=== PATIENT | male | born 1990 | race Caucasian/White ===

== ENCOUNTER → 2023-11-28 | Outpatient (CLI) | payer OTHER ==
--- NOTE | 2023-11-28 21:09 | MR ---
EXAMINATION TYPE: MR cervical spine wo con DATE OF EXAM: 11/28/2023 12:15 PM CLINICAL INDICATION:Male, 33 years old with history of M54.2 Neck pain; Chronic neck pain, LUE tingli ng/weakness. COMPARISON: None. TECHNIQUE: Multi planar, multi sequence imaging was performed utilizing: T1-weighted, T2-weighted, an d turbo inversion recovery imaging of the cervical spine. IV Contrast: (none if empty) FINDINGS: Alignment: The cervical vertebral bodies have preserved heights. Alignment is within normal limits gi anthony patient positioning. Bones: Minimal osteophytes and disc space narrowing most pronounced at the C5-C7 vertebral levels. Cord: The spinal cord is unremarkable with regards to their signal intensity and morphology. Discs: Intervertebral disc signal is maintained. C2-C3: No significant disc pathology. The spinal canal is patent. No neural foraminal stenosis. C3-C4: No significant disc pathology. The spinal canal is patent. No neural foraminal stenosis. C4-C5: No significant disc pathology. The spinal canal is patent. Bilateral facet and uncovertebral joint arthropathy are present with mild bilateral neural foraminal stenosis. C5-C6: No significant disc pathology. The spinal canal is patent. No neural foraminal stenosis. C6-C7: No significant disc pathology. The spinal canal is patent. No neural foraminal stenosis. C7-T1: No significant disc pathology. The spinal canal is patent. No neural foraminal stenosis. Other: None. IMPRESSION: 1. No evidence for disc herniation or significant spinal canal stenosis. 2. Mild disc degeneration with associated osteoarthritic changes.
== END | disposition home or self-care (01) ==
LOC: RADMRIMAIN 11:27
DX: M47.812 Spondylosis without myelopathy or radiculopathy, cervical region (principal); M50.30 Other cervical disc degeneration, unspecified cervical region
CPT/HCPCS: 72141

== ENCOUNTER → 2024-05-24 | Outpatient (CLI) | payer OTHER ==
[2024-05-24 15:12] VITALS: BP 128/67; PULSE 77; RESP 16; TEMP 98
--- NOTE | 2024-05-24 16:04 | P.SLEEP ---
History of Present Illness DATE: 05/24/2024 CONSULTATION/NEW PATIENT EVALUATION HISTORY OF PRESENT ILLNESS/SLEEP-WAKE EVALUATION: 33-year-old gentleman had be en evaluated in the sleep center for possible obstructive sleep apnea hypopnea syndrome. SLEEP SCHEDULE: Usually sleep schedule from 11 PM to 5:30 AM on weekdays and from midnight until 7:30 AM on weekend. FALLING ASLEEP: No problems with falling asleep. DURING SLEEP: Patient sleeps with snoring and witnessed episodes of stop breathing during his sleep by his . Positive history of heartburn, gasping for air, restless leg symptoms. Patient wakes up from sleep 3 times with 1 episode of nocturia. Occasional positive history of hypnogogical hallucinations, no sleep paralysis. DURING THE DAY/WAKE STATE: In the morning patient wake up tired, has problems with memory, concentration, irritability, depression, anxiety. Positive history of possible cataplexy episodes with weakness in the knees. [place] sleepiness scale is an extremely high range of 17. Patient does not take naps. PAST MEDICAL HISTORY: PTSD, neck problems, back problems, acid reflux, hyperlipidemia. PAST SURGICAL HISTORY: Please see below. MEDICATIONS: Please see below. SOCIAL HISTORY: Please see below. FAMILY HISTORY: Hypertension, snoring, acid reflux. REVIEW OF SYSTEMS: Snoring, multiple awakenings from sleep, sleepiness during the day. No fevers. No double vision. No recent chest pain. No shortness of breath. No abdominal pain. No bleeding episodes. No blood in urine. No seizure episodes. PHYSICAL EXAMINATION: GENERAL: A pleasant patient without any distress. VITAL SIGNS: Please see below, weight 193 pounds, BMI 27.6. HEENT: PERRLA, EOMI. Evaluation of oropharynx showed tongue protrudes midline, low position of soft palate Mallampati3. NECK: Supple. No JVD. Thyroid is not palpable. 16 inches in circumference. LUNGS: Clear to percussion and to auscultation. Good air exchange. No wheezing or rhonchi. HEART: S1, S2 regular. No murmurs, gallops or rubs. ABDOMEN: Soft and nontender. Bowel sounds are present. No organomegaly appreciated. EXTREMITIES: No clubbing or cyanosis. CLINICAL SOCIOLOGIST: Awake, alert, and oriented x3. Cranial nerves 2 to 7 intact. There is no fasciculation or atrophy noted. No focal deficits observed. ASSESSMENT: 1. Snoring, witnessed episodes of stop breathing during the sleep by patient's , multiple awakenings from sleep, small oropharyngeal airspace, significant excessive daytime sleepiness. Obstructive sleep apnea hypopnea syndrome. 2. Extremely high [place] Sleepiness Scale of 17, positive history of possible hypnogogical hallucinations and possible cataplexy episodes dictate necessity to include narcolepsy type I in differential diagnosis. 3. History of PTSD. 4. Neck problems. 5. Back problems. 6 . Acid reflux. 7. Hyperlipidemia. PLAN: 1. Polysomnography for evaluation of patient's breathing during sleep. 2. Following plan after reading sleep study. 3. Preferable position during sleep on the side. 4. No driving if patient feels any sleepiness. Patient is aware of civil and criminal liability for unsafe driving. 5. Sleep hygiene with regular sleep time for at least 7.5-8 hours. 6. Watching weight. Thank you very much for referring this patient for consultation. Sincerely, Goran De La Cruz MD, PhD, FAASM. Diplomat of [place] [employer], Sleep Medicine Board by [employer] Pattern [employer] [facility] [place] cc: Ashly Catalan PA-C Past Medical History Past Medical History: GERD/Reflux, Hyperlipidemia History of Any Multi-Drug Resistant Organisms: None Reported Past Surgical History: No Surgical Hx Reported Past Anesthesia/Blood Transfusion Reactions: No Reported Reaction Past Psychological History: No Psychological Hx Reported Smoking Status: Former smoker Past Alcohol Use History: Daily Past Drug Use History: None Reported Medications and Allergies Home Medications Medication Instructions Recorded Confirmed Type Atorvastatin [Lipitor] 40 mg PO DAILY 05/24/24 05/24/24 History Omeprazole 40 mg PO 05/24/24 History Physical Exam Vitals: Vital Signs Temp Pulse Resp BP Pulse Ox 05/24/24 15:11 98.0 F 77 16 128/67 99 Intake and Output 05/24/24 05/24/24 05/24/24 06:59 14:59 22:59 Other: Weight 87.543 kg Sleep Note - Sleep Data ESS Total: 17 - Sleep Note Sleep Note: Temperature: 98.0 F Pulse Rate: 77 Respiratory Rate: 16 Blood Pressure: 128/67 SpO2: 99 Height: 5 ft 10 in Weight: 87.543 kg BMI: Neck Circumference: 16
== END ==
LOC: 3 N SLEEP 14:23
PROVIDERS: ATTEND Internal Medicine
DX: G47.33 Obstructive sleep apnea (adult) (pediatric) (principal); M53.9 Dorsopathy, unspecified; M54.2 Cervicalgia; K21.9 Gastro-esophageal reflux disease without esophagitis; E78.5 Hyperlipidemia, unspecified; Z87.891 Personal history of nicotine dependence; Z86.59 Personal history of other mental and behavioral disorders
CPT/HCPCS: 99211

== ENCOUNTER 2024-06-28 19:44 | Outpatient (CLI) | payer OTHER ==
--- NOTE | 2024-07-04 14:37 | P.PCN ---
Description of Procedure: POLYSOMNOGRAPHY REPORT PROCEDURE(S)/DATE(S): Polysomnography 06/28/2024 CLINICAL: Patient has been seen in the sleep center for evaluation of obstructive sleep apnea-hypopnea syndrome. Please see my consultation. Sleep study has been done for evaluation of patient breathing during the sleep. PROCEDURE: The standard montage for clinical polysomnography included the electroencephalogram, the electrooculogram, the mentalis surface electromyography and Lead II cardiography. The respiratory battery consisted of measurements of nasal/buccal air flow, pressure transducer measurements from nose, thoracic and/or abdominal effort and intercostal surface electromyography. Video monitoring has been done to check for any parasomnia events. Nocturnal oxyhemoglobin saturations were obtained by finger oximetry. Step-leon titration with positive airway pressure was utilized to control the respiratory events, if necessary. RESULTS: During the diagnostic sleep study sleep efficiency was normal 90.4%. Latency to sleep onset was close to the border 26.0 min. Sleep architecture showed stage NI was normal 6.6%, Delta sleep was extremely short 0.8%, REM sleep was normal 23.0%. Respiratory channel showed 3 obstructive apneas, 3 mixed apneas, 29 central apneas, 106 hypopneas with lowest oxygen level 84%. Total apnea hypopnea index was 21.5. Heart rate was in the range between 61 and 73, average 66. EMG showed 0 periodic limb movements per hour . IMPRESSIONS: 1. Moderate mostly central sleep apnea hypopnea syndrome. 2. No significant periodic limb movements have been documented. Please see other impressions from consultation PLAN: 1. The patient will have CPAP if necessary BiPAP ST mode titration for correction of respiratory abnormalities during the sleep. 2. Watching weight. 3. Sleep hygiene with regular time in bed for at least 7-1/2 hours. 4. No driving if feeling sleepiness. Thank you very much for allowing me to participate in the management of your patient. Sincerely, Goran De La Cruz MD, PhD, FAASM. Diplomat of [place] [employer], Sleep Medicine Board by [employer] Medicine Commercial Real Estate Appraiser [facility] [place] Dennys Farnsworth DO
== END 2024-06-29 05:55 | disposition home or self-care (01) ==
LOC: 3 N SLEEP 19:44
PROVIDERS: ATTEND Internal Medicine
CPT/HCPCS: 95810

== ENCOUNTER 2024-07-26 19:38 | Outpatient (CLI) | payer OTHER ==
--- NOTE | 2024-08-02 14:17 | P.PCN ---
Description of Procedure: CLINICAL: Titration with positive air pressure has been done for correction of respiratory abnormalities during sleep. DESCRIPTION OF PROCEDURE: The standard montage for clinical polysomnography included the electroencephalogram, the electrocardiogram, the mentalis surface electromyography and Lead II cardiography. The respiratory battery consisted of measurements of nasal /buccal air flow, pressure transducer measurements from the nose, thoracic and /or abdominal effort and intercostal surface electromyography. Video monitoring has been done to check for any parasomnia events. Nocturnal oxyhemoglobin saturations were obtained by finger oximetry. Step-leon titration with positive airway pressure was utilized to control respiratory events. Raw data of sleep recording has been reviewed and is adequate. RESULTS: Sleep efficiency was slightly decreased to 85.7%. Latency to sleep onset was borderline 30.5 minutes.]. Sleep architecture showed stage N1 was in normal range 8.4%, Delta sleep was absent 0%, REM sleep was slightly decreased to 18.7%. Heart rate was minimum 56 BPM, maximum 68 BPM, average 61 BPM. EMG showed 0 periodic limb movements per hour. PAP titration have been done with CPAP up to the pressure 12 cm H2O. Patient had problems with CPAP, switched to BPAP. BPAP titrated up to 14/10 cm H2O. The best results were at the pressure BiPAP 14/10 ST mode cm H2O. Apnea hypopnea index reduced to 0. IMPRESSION: 1. Central and obstructive sleep apnea hypopnea syndrome mostly on controle with BPAP ST mode treatment. 2. No significant periodic limb movements have been documented. Please see other impressions from consultation. PLAN: 1. The patient will have treatment with positive air pressure equipment with the level of pressure BPAP ST 14/10 cm H2O with respiratory rate 12 and should use it every night for the whole night. 2. Watching weight. 3. Sleep hygiene with regular time in bed for at least 8 hours. 4. No driving if feeling any sleepiness. 5. I will see the patient for follow up visit to explain the results of the test, recommendations, check compliance with treatment and make any necessary adjustment related to mask fitting, pressure and humidification. Thank you very much for allowing me to participate in the management of your patient. Sincerely, Goran De La Cruz MD, PhD, FAASM Diplomat of [place] [employer] Sleep Medicine Board of [place] [employer] Medicine Sales[employer]Marketing [facility] [place] cc: Dennys Farnsworth DO
== END 2024-07-27 05:20 | disposition home or self-care (01) ==
LOC: 3 N SLEEP 19:38
PROVIDERS: ATTEND Internal Medicine
CPT/HCPCS: 95811

== ENCOUNTER 2025-02-10 12:24 | Emergency (ER) | payer OTHER ==
[2025-02-10 12:29] VITALS: TEMP 98.2
--- NOTE | 2025-02-10 12:38 | ED ---
Fall HPI - General Chief Complaint: Fall Stated Complaint: R Leg Injury-Fall Time Seen by Provider: 02/10/25 12:30 Source: patient Mode of arrival: wheelchair - History of Present Illness Initial Comments: Is a 34-year-old man who presents to have evaluation of right knee injury. The patient states that last night approximately 1030 he was going downstairs when he slipped and fell. He states that it hyperextended his knee. Patient states that his knee actually appeared to flex forward about 15 degrees. He experienced pain but there was no one to drive him to the hospital last night so he stayed at home until his father was able. Patient notes right knee swelling and pain. He is not able to flex or extend the knee due to pain. Denies any weakness or numbness distal to the injury. MD Complaint: fall -: hour(s) (14) Fall From: down stairs (#) When Fall Occurred: other Place Fall Occurred: home Loss of Consciousness: none Prolonged Down Time?: no Symptoms Prior to Fall: none Location - Extremities: Right: Knee Severity: moderate Quality: aching Context: tripped/slipped Associated Symptoms: unable to walk - Related Data Home Medications Medication Instructions Recorded Confirmed Atorvastatin [Lipitor] 40 mg PO DAILY 05/24/24 05/24/24 Omeprazole 40 mg PO 05/24/24 Allergies Allergy/AdvReac Type Severity Reaction Status Date / Time No Known Allergies Allergy Verified 02/12/25 15:02 Review of Systems ROS Statement: Those systems with pertinent positive or pertinent negative responses have been documented in the HPI. ROS Other: All systems not noted in ROS Statement are negative. Constitutional: Denies: fever, weakness Respiratory: Denies: cough, dyspnea Cardiovascular: Denies: chest pain, palpitations Gastrointestinal: Denies: abdominal pain Musculoskeletal: Reports: as per HPI, joint swelling, arthralgia. Denies: back pain Neurological: Denies: weakness, numbness, paresthesias Hematological/Lymphatic: Denies: easy bleeding Past Medical History History of Any Multi-Drug Resistant Organisms: None Reported Past Psychological History: PTSD Smoking Status: Never smoker Past Alcohol Use History: None Reported, Occasional Past Drug Use History: None Reported General Exam Limitations: no limitations General appearance: alert, in no apparent distress Head exam: Present: atraumatic, normocephalic Neck exam: Present: full ROM Respiratory exam: Present: normal lung sounds bilaterally. Absent: respiratory distress, wheezes, rales, rhonchi, stridor, accessory muscle use Cardiovascular Exam: Present: regular rate, normal rhythm, normal heart sounds. Absent: systolic murmur, diastolic murmur, rubs, gallop GI/Abdominal exam: Present: soft. Absent: tenderness Right Hip exam: Present: normal inspection, full ROM. Absent: tenderness, swelling Upper Leg exam: Present: normal inspection, full ROM. Absent: tenderness, swelling Knee exam: Present: tenderness, swelling, effusion. Absent: normal inspection, full ROM, abrasion, laceration, ecchymosis, crepitus, erythema, full knee extension Lower Leg exam: Present: normal inspection. Absent: tenderness, swelling, abrasion, laceration, ecchymosis Ankle exam: Present: normal inspection, full ROM. Absent: tenderness, swelling Foot/Toe exam: Present: normal inspection, full ROM. Absent: tenderness, swelling Neurovascular tendon exam: Present: no vascular compromise. Absent: pulse deficit, abnormal cap refill, motor deficit, sensory deficit, tendon deficit Back exam: Present: normal inspection. Absent: vertebral tenderness Neurological exam: Present: alert. Absent: motor sensory deficit Skin exam: Present: warm, dry, intact, normal color. Absent: rash Course Vital Signs 02/10/25 02/10/25 12:25 14:33 Temperature 98.2 F Pulse Rate 103 H 90 Respiratory 18 16 Rate Blood Pressure 157/101 130/80 O2 Sat by Pulse 100 99 Oximetry Medical Decision Making - Medical Decision Making Patient had x-rays of the right knee that I interpreted as showing tibial plateau fracture. No dislocation. There is also hemarthrosis. The patient had CT scan of the lower extremity that I interpreted as showing intact arterial circulation. There is tibial plateau fracture Was pt. sent in by a medical professional or institution (, PA, SCRUBBING MACHINE OPERATOR, urgent care, hospital, or residential...) When possible be specific @ -[No] Did you speak to anyone other than the patient for history (EMS, parent, family, police, friend...)? What history was obtained from this source @ -[No] Did you review nursing and triage notes (agree or disagree)? Why? @ -[I reviewed and agree with nursing and triage notes] Were old charts reviewed (outside hosp., previous admission, EMS record, old EKG, old radiological studies, urgent care reports/EKG's, residential records)? Report findings @ -[No old charts were reviewed] Differential Diagnosis (chest pain, altered mental status, abdominal pain women, abdominal pain men, vaginal bleeding, weakness, fever, dyspnea, syncope, headache, dizziness, GI bleed, back pain, seizure, CVA, palpatations, mental health, musculoskeletal)? @ -[Differential Musculoskeletal Muscular strain, contusion, ligament sprain, fracture, arthritis, septic arthritis, bursitis, cellulitis, muscle spasm, nerve compression, DVT, arterial occlusion, herpes zoster, electrolyte abnormality, tumor.... This is not meant to be in all inclusive list EKG interpreted by me (3pts min.). @ -[As above] X-rays interpreted by me (1pt min.). @ -[I interpreted as above CT interpreted by me (1pt min.). @ -[I interpreted as above U/S interpreted by me (1pt. min.). @ -[None done] What testing was considered but not performed or refused? (CT, X-rays, U/S, labs)? Why? @ -[None] What meds were considered but not given or refused? Why? @ -[None] Did you discuss the management of the patient with other professionals (professionals i.e. , PA, SCRUBBING MACHINE OPERATOR, lab, RT, psych nurse, social work coordinator, electronics processor, teacher, crime prevention police officer, rn case management)? Give summary @ -[Case discussed with orthopedics on-call Was smoking cessation discussed for >3mins.? @ -[No] Was critical care preformed (if so, how long)? @ -[No] Were there social determinants of health that impacted care today? How? (Homelessness, low income, unemployed, alcoholism, drug addiction, transportation, low edu. Level, literacy, decrease access to med. care, intermediate, rehab)? @ -[No] Was there de-escalation of care discussed even if they declined (Discuss DNR or withdrawal of care, Hospice)? DNR status @ -[No] What co-morbidities impacted this encounter? (DM, HTN, Smoking, COPD, CAD, Cancer, CVA, ARF, Chemo, Hep., AIDS, mental health diagnosis, sleep apnea, morbid obesity)? @ -[None] Was patient admitted / discharged? Hospital course, mention meds given and route, prescriptions, significant lab abnormalities, going to OR and other pertinent info. @ -[Patient is a 34-year-old man here to have evaluation following knee injury. He is found to have tibial plateau fracture. The patient did have CT scan of the arterial circulation as there was concern about possible knee dislocation and arterial injury. I then discussed the case with orthopedics who will see the patient in clinic. Discussed appropriate further care and follow-up as well as return parameters. Undiagnosed new problem with uncertain prognosis? @ -[No] Drug Therapy requiring intensive monitoring for toxicity (Heparin, Nitro, Insulin, Cardizem)? @ -[No] Were any procedures done? @ -[No] Diagnosis/symptom? @ -Acute tibial plateau fracture Acute, or Chronic, or Acute on Chronic? @ -[Acute Uncomplicated (without systemic symptoms) or Complicated (systemic symptoms)? @ -[Uncomplicated Side effects of treatment? @ -[No] Exacerbation, Progression, or Severe Exacerbation? @ -[No] Poses a threat to life or bodily function? How? (Chest pain, [place], DC, pneumonia, PE, COPD, DKA, ARF, appy, cholecystitis, CVA, Diverticulitis, Homicidal, Suicidal, threat to staff... and all critical care pts) @ -[Yes there is risk of loss of knee function, patient requires orthopedic follow-up and surgery All treatments are based on ideal body weight as in ED triage - Lab Data Result diagrams: 02/10/25 13:23 02/10/25 13:23 Lab Results 02/10/25 02/10/25 Range/Units 13:23 13:23 WBC 8.45 (4.50-10.00) 10*3/uL RBC 4.88 (4.40-5.60) 10*6/uL Hgb 15.4 (13.0-17.0) g/dL Hct 43.6 (39.6-50.0) % MCV 89.3 (80.0-97.0) fL MCH 31.6 (27.0-32.0) pg MCHC 35.3 (32.0-37.0) g/dL Plt Count 283 (140-440) 10*3/uL MPV 9.9 (9.5-12.2) fL Immature Gran % (Auto) 0.5 % Neutrophils % 72.7 % Lymphocytes % 14.4 % Monocytes % 11.8 % Eosinophils % 0.1 % Basophils % 0.5 % Immature Gran # 0.04 (0.00-0.04) 10*3/uL Neutrophils # 6.14 (1.80-7.70) 10*3/uL Lymphocytes # 1.22 (0.90-5.00) 10*3/uL Monocytes # 1.00 (0.20-1.00) 10*3/uL Eosinophils # 0.01 L (0.04-0.35) 10*3/uL Basophils # 0.04 (0.00-0.10) 10*3/uL Sodium 139 (137-145) mmol/L Potassium 4.0 (3.5-5.1) mmol/L Chloride 105 (98-107) mmol/L Carbon Dioxide 24 (22-30) mmol/L Anion Gap 10 mmol/L BUN 12 (9-20) mg/dL Creatinine 0.80 (0.66-1.25) mg/dL Est GFR (CKD-EPI)AfAm >90 (>60 ml/min/1.73 sqM) Est GFR (CKD-EPI)NonAf >90 (>60 ml/min/1.73 sqM) Glucose 87 (74-99) mg/dL Calcium 9.5 (8.4-10.2) mg/dL Total Bilirubin 0.9 (0.2-1.3) mg/dL AST 48 (17-59) U/L ALT 81 H (4-49) U/L Alkaline Phosphatase 82 (38-126) U/L Total Protein 7.9 (6.3-8.2) g/dL Albumin 4.9 (3.5-5.0) g/dL Disposition Clinical Impression: Tibial plateau fracture, right Disposition: HOME SELF-CARE Condition: Good Instructions (If sedation given, give patient instructions): Leg Fracture (ED) Is patient prescribed a controlled substance at d/c from ED?: Yes When asked, does pt state using other controlled substances?: No If prescribed controlled substance>3 days was MAPS reviewed?: Prescribed <3 Days If opioid is for acute pain is fill amount 7 days or less?: Yes If Rx opioid, was Start Talking consent form obtained?: Yes Referrals: Dennys Farnsworth DO [Primary Care Provider] - 1-2 days David Polk DO [Doctor of Osteopathic Medicine] - 1-2 days
[2025-02-10] MEDS: IBUPROFEN 600 MG TAB PO STA (12:50)
--- NOTE | 2025-02-10 12:58 | XR ---
Right knee. HISTORY: Pain following fall. COMPARISON: None TECHNIQUE: 3 views of the right knee were obtained. FINDINGS: There is an intra-articular fracture of the anterior and medial aspect of the tibial plateau. There i s a large suprapatellar joint effusion with a fluid/fluid level consistent with hemarthrosis. There i s no dislocation. IMPRESSION: Minimally displaced intra-articular fracture of the anterior and medial tibial plateau with hemarthro sis. [facility], , 02/10/2025 12:55 PM
[2025-02-10] MEDS ORDERED: RX INFO: IV CONTRAST WAS GIVEN 1 EACH MISC MISCELLANE PRN (13:02)
[2025-02-10 13:39] LABS: Basophils # (A) 0.04 10*3/uL (0.00-0.10); Basophils % (A) 0.5 %; Eosinophils # (A) 0.01 10*3/uL (0.04-0.35); Eosinophils % (A) 0.1 %; HCT 43.6 % (39.6-50.0); HGB 15.4 g/dL (13.0-17.0); Lymphocytes # (A) 1.22 10*3/uL (0.90-5.00); Lymphocytes % (A) 14.4 %; MCH 31.6 pg (27.0-32.0); MCHC 35.3 g/dL (32.0-37.0); MCV 89.3 fL (80.0-97.0); Mean Platelet Volume 9.9 fL (9.5-12.2); Monocytes % (A) 11.8 %; Neutrophils # (A) 6.14 10*3/uL (1.80-7.70); Neutrophils % (A) 72.7 %; Platelet Count 283 10*3/uL (140-440); RBC 4.88 10*6/uL (4.40-5.60); RDW 11.9 % (11.5-14.5); WBC 8.45 10*3/uL (4.50-10.00)
[2025-02-10 13:50] LABS: ALT 81 U/L (4-49); AST 48 U/L (17-59); African American GFR (CKD) >90 (>60 ml/min/1.73 sqM); Albumin 4.9 g/dL (3.5-5.0); Alkaline Phosphatase 82 U/L (38-126); Anion Gap 10 mmol/L; Blood Urea Nitrogen 12 mg/dL (9-20); Calcium 9.5 mg/dL (8.4-10.2); Carbon Dioxide 24 mmol/L (22-30); Chloride 105 mmol/L (98-107); Glucose 87 mg/dL (74-99); Non-African American GFR(CKD) >90 (>60 ml/min/1.73 sqM); Sodium 139 mmol/L (137-145); Total Bilirubin 0.9 mg/dL (0.2-1.3); Total Protein 7.9 g/dL (6.3-8.2)
[2025-02-10 14:34] VITALS: BP 130/80; PULSE 90; RESP 16
--- NOTE | 2025-02-10 14:38 | CT ---
EXAMINATION TYPE: CT angio lower extremity RT DATE OF EXAM: 02/10/2025 2:28 PM COMPARISON: Same day right knee radiograph 02/10/2025. CLINICAL INDICATION: Male, 34 years old with history of attention knee; PHH, RIGHT KNEE INJURY TECHNIQUE: Axial images were obtained of the CT angio lower extremity RT, Additional coronal and sagi ttal reformatted images and soft tissue and bone window were obtained for review. 3-D reconstruction was created on a separate workstation. Contrast used:100 mL of Isovue 370 with IV Contrast, (None if empty) CT DLP: 1086.2 mGycm, Automated exposure control for dose reduction was used. FINDINGS: Right common, external and internal iliac arteries are all patent. Right common femoral and superfici al femoral arteries are patent. Right popliteal artery is patent without evidence of contrast extrava sation. Moderate-sized lipohemarthrosis noted in the right knee there is a comminuted minimally displ aced fracture of the anterior and medial right tibial plateau with intra-articular extension. Fibula appears intact. Femur appears intact. Anterior tibial, posterior tibial and peroneal arteries are all patent with three-vessel right lower extremity runoff. No soft tissue mass or unexpected retained fo reign body. IMPRESSION: 1. Comminuted minimally displaced fracture of the anterior and medial tibial plateau with moderate s ize lipohemarthrosis. 2. No evidence of vascular injury. Three-vessel right lower extremity runoff. [facility], , 02/10/2025 2:36 PM
== END 2025-02-10 15:36 | disposition home or self-care (01) ==
LOC: MERGE 12:24 → EC 12:24
DX: S82.141A Displaced bicondylar fracture of right tibia, initial encounter for closed fracture (principal); W10.9XXA Fall (on) (from) unspecified stairs and steps, initial encounter
CPT/HCPCS: 36415; 80053; 85025; 73562; 73706; 99284; Q9967

== ENCOUNTER → 2025-02-18 | Outpatient (CLI) | payer OTHER ==
--- NOTE | 2025-02-18 19:53 | MR ---
EXAMINATION TYPE: MR knee RT wo con DATE OF EXAM: 02/18/2025 7:37 PM COMPARISON: 02/12/2025. CLINICAL INDICATION: Male, 34 years old with history of M25.561, RT knee pain and swelling, fell down stairs. TECHNIQUE: Multi planar, multi sequence imaging was performed of the knee including: Triplane proton density fat-saturated images and T1-weighted imaging. No Gadolinium was given. IV Contrast: mL (none if empty) FINDINGS: Medial meniscus: Intact somewhat diffuse increased signal within the posterior horn of the no park dence for tear. Medial femorotibial cartilage: Intact Medial collateral ligament: Intact Lateral meniscus: Intact Lateral femorotibial cartilage: Intact Lateral collateral ligament complex: Intact Patellofemoral alignment: Normal Patellofemoral cartilage: Intact Extensor mechanism: Intact. Joint/bursal fluid: Moderate to large joint effusion with lipohemarthrosis with 2 layering fluid fluid levels identified. Fluid also layering with in the deep infrapatellar bursa. Muscles/tendons: The patellar tendon, quadriceps tendon, IT band, pes anserinus tendons, semimembrano johnnie tendon, popliteus tendon, and biceps femoris tendon are all within normal limits. A fabella is pr esent. Bone marrow: Bony edema within the tibial plateau with subchondral curvilinear low T1 and low T2 signal fracture line present. This involves both the medial and lateral tibial plateau. No significan t depression identified. The fibula, femur and patella are intact. Anterior cruciate ligament: Intact. Posterior cruciate ligament: Intact. Soft tissues: Diffuse soft tissue edema around the leg. IMPRESSION: 1. Acute/subacute tibial plateau fracture involving both medial and lateral tibial plateau with out significant displacement there is an associated moderate to large joint effusion with lipohemarthrosi s. 2. No definitive evidence to suggest meniscal tear nor ligamentous injury. [facility], , 02/18/2025 7:50 PM
== END | disposition home or self-care (01) ==
LOC: RADMRIMAIN 18:56
PROVIDERS: ATTEND Orthopaedic Surgery
DX: S82.121A Displaced fracture of lateral condyle of right tibia, initial encounter for closed fracture (principal); W10.9XXA Fall (on) (from) unspecified stairs and steps, initial encounter

== ENCOUNTER 2025-05-18 04:55 | Emergency (ER) | payer OTHER ==
--- NOTE | 2025-05-18 05:30 | ED ---
General Adult HPI - General Chief complaint: Extremity Injury, Lower Stated complaint: Knee pain Time Seen by Provider: 05/18/25 05:07 Source: patient Mode of arrival: EMS Limitations: no limitations - History of Present Illness Initial comments: Dictation was produced using [employer] dictation software. please excuse any grammatical, word or spelling errors. Chief Complaint: 34-year-old male with right knee pain History of Present Illness: Patient 34-year-old male he has history of tibial plateau fracture to his right knee several months ago. States that he is recovering. Today he was scratching around when he took a hard step. States that exacerbated his knee symptoms. Patient has significant pain. EMS was called patient was brought to the ER he was given fentanyl prior to arrival The ROS documented in this emergency department record has been reviewed and confirmed by me. Those systems with pertinent positive or negative responses have been documented in the HPI. All other systems are other negative and/or noncontributory. - Related Data Home Medications Medication Instructions Recorded Confirmed Atorvastatin [Lipitor] 40 mg PO DAILY 05/24/24 05/24/24 Omeprazole 40 mg PO 05/24/24 Allergies Allergy/AdvReac Type Severity Reaction Status Date / Time No Known Allergies Allergy Verified 02/12/25 15:02 Review of Systems ROS Statement: Those systems with pertinent positive or pertinent negative responses have been documented in the HPI. ROS Other: All systems not noted in ROS Statement are negative. Past Medical History Past Medical History: GERD/Reflux, Hyperlipidemia History of Any Multi-Drug Resistant Organisms: None Reported Past Surgical History: No Surgical Hx Reported Past Anesthesia/Blood Transfusion Reactions: No Reported Reaction Past Psychological History: No Psychological Hx Reported, PTSD Smoking Status: Former smoker, Never smoker Past Alcohol Use History: Daily, None Reported, Occasional General Exam - General Exam Comments Initial Comments: General: Well-appearing, nontoxic, no acute distress. Head: Normocephalic, atraumatic Eyes: PERRLA, EOMI ENT: Airway patent Chest: Nonlabored breathing Skin: No visual rash, normal skin tone Neuro: Alert and oriented 3 Musculoskeletal: No gross abnormalities Right knee: Swelling and erythema to the right knee Limitations: no limitations Course Vital Signs 05/18/25 04:58 Temperature 98.6 F Pulse Rate 110 H Respiratory 18 Rate Blood Pressure 124/82 O2 Sat by Pulse 98 Oximetry Medical Decision Making - Medical Decision Making Was pt. sent in by a medical professional or institution (, PA, [employer], urgent care, hospital, or detention...) When possible be specific @ -No Did you speak to anyone other than the patient for history (EMS, parent, family, police, friend...)? What history was obtained from this source @ -No Did you review nursing and triage notes (agree or disagree)? Why? @ -I reviewed and agree with nursing and triage notes Were old charts reviewed (outside hosp., previous admission, EMS record, old EKG, old radiological studies, urgent care reports/EKG's, detention records)? Report findings @ -No old charts were reviewed Differential Diagnosis (chest pain, altered mental status, abdominal pain women, abdominal pain men, vaginal bleeding, musculoskeletal, weakness, fever, dyspnea, syncope, headache, dizziness, GI bleed, back pain, seizure, CVA, palpatations, mental health)? @ -Knee sprain, soft tissue tear, knee fracture EKG interpreted by me (3pts min.). @ -None done X-rays interpreted by me (1pt min.). @ -Right knee x-ray shows lucency over the proximal fibula CT interpreted by me (1pt min.). @ -None done U/S interpreted by me (1pt. min.). @ -None done What testing was considered but not performed or refused? (CT, X-rays, U/S, labs)? Why? @ -None What meds were considered but not given or refused? Why? @ -None Was smoking cessation discussed for >3mins.? @ -No Were there social determinants of health that impacted care today? How? (Homelessness, low income, unemployed, alcoholism, drug addiction, transportation, low edu. Level, literacy, decrease access to med. care, nursing home, rehab)? @ -No Was there de-escalation of care discussed even if they declined (Discuss DNR or withdrawal of care, Hospice)? DNR status @ -No What co-morbidities impacted this encounter? (DM, HTN, Smoking, COPD, CAD, Cancer, CVA, ARF, Chemo, Hep., AIDS, mental health diagnosis, sleep apnea, morbid obesity)? @ -None Was patient admitted / discharged? Hospital course, mention meds given and route, prescriptions, significant lab abnormalities, going to OR and other pertinent info. @ -34-year-old male with history of tibial plateau fracture presents to the emergency department with knee pain after having a slight misstep. Patient has swollen knee which she states is mostly chronic. X-ray shows questionable proximal fibular fracture. Patient told to follow-up with Ortho. At this point told to not weight-bear to the right leg until seen by Ortho Did you discuss the management of the patient with other professionals (professionals i.e. , PA, [employer], lab, RT, psych nurse, social science manager, bus monitor, teacher, infantry weapons officer, residential case manager)? Give summary @ -No Was critical care preformed (if so, how long)? @ -No Undiagnosed new problem with uncertain prognosis? @ -No Drug Therapy requiring intensive monitoring for toxicity (Heparin, Nitro, I nsulin, Cardizem)? @ -No Were any procedures done? @ -No Diagnosis/symptom? Acute, or Chronic, or Acute on Chronic? Uncomplicated (without systemic symptoms) or Complicated (systemic symptoms)? @ -Knee pain Side effects of treatment? @ -No Exacerbation, Progression, or Severe Exacerbation? @ -No Poses a threat to life or bodily function? How? (Chest pain, [place], MA, pneumonia, PE, COPD, DKA, ARF, appy, cholecystitis, CVA, Diverticulitis, Homicidal, Suicidal, threat to staff... and all critical care pts) @ -yes Disposition Clinical Impression: Knee pain Disposition: HOME SELF-CARE Condition: Fair Instructions (If sedation given, give patient instructions): Knee Pain (ED) Is patient prescribed a controlled substance at d/c from ED?: No Referrals: David Polk DO [Doctor of Osteopathic Medicine] - 1-2 days Time of Disposition: 06:48
[2025-05-18] MEDS: MORPHINE SULFATE 4 MG/ML SYRINGE IM STA (05:45)
--- NOTE | 2025-05-18 07:37 | XR ---
EXAMINATION TYPE: XR knee limited RT DATE OF EXAM: 05/18/2025 6:06 AM COMPARISON: 02/10/2025 CLINICAL INDICATION: Male, 34 years old with history of knee pain, pain TECHNIQUE: XR knee limited RT views were obtained FINDINGS: The osseous structures appear osteopenic. Nondisplaced proximal fibular/fibular neck fractu re is difficult to exclude. Correlate clinically with point tenderness. Previously described intra-ar ticular fracture involving the medial tibial plateau demonstrates interval callus formation and is le ss conspicuous. The tri-compartment joint spaces appear within normal limits. The overlying soft tis ronni appears unremarkable. IMPRESSION: The osseous structures appear osteopenic. Nondisplaced proximal fibular/fibular neck fra cture is difficult to exclude. Correlate clinically with point tenderness. Previously described intra -articular fracture involving the medial tibial plateau demonstrates interval callus formation and is less conspicuous. [facility], , 05/18/2025 7:34 AM
[2025-05-18 08:03] VITALS: BP 103/60; RESP 16
[2025-05-18 10:25] VITALS: PULSE 98; TEMP 98.8
== END 2025-05-18 10:20 | disposition home or self-care (01) ==
LOC: EC 04:55
DX: S82.141A Displaced bicondylar fracture of right tibia, initial encounter for closed fracture (principal); M85.80 Other specified disorders of bone density and structure, unspecified site; Z87.891 Personal history of nicotine dependence; X58.XXXA Exposure to other specified factors, initial encounter
CPT/HCPCS: 99283; 96372; 73560; J2270